=== PATIENT | female | born 1975 | race African-American/Black ===

== ENCOUNTER 2017-12-24 10:14 | Emergency (ER) | payer BC ==
[2017-12-24 10:34] LABS: Bilirubin Negative (Negative); Blood, Urine Trace (Negative); Clarity Cloudy (Clear); Glucose, Urine (Dipstick) Negative (Negative); Leukocyte Negative (Negative); Nitrite Negative (Negative); Protein, Urine (Dipstick) 100 mg/dL (Neg-Trace); Specific Gravity, Urine 1.029 (1.002-1.036); Urobilinogen 0.2 mg/dL (0.2-1.0)
[2017-12-24 10:35] LABS: Pregnancy Test - Urine (BHCG) Negative (Negative); Pregu Control Background? CLEAR/WHITE (CLR/WHITE); Pregu Control Bar Appear? YES (CONTROL BAR); Specific Gravity 1.029 (1.002-1.036)
[2017-12-24 10:39] LABS: Bacteria/HPF 1+ HPF (None Seen); WBC/HPF 0-3 HPF (0-3)
[2017-12-24 12:26] LABS: #Basophils 0.1 thou/uL (0.0-0.2); #Eosinphils 0.1 thou/uL (0.0-0.7); #Lymphocytes 1.9 thou/uL (1.20-3.40); #Monocytes 0.6 thou/uL (0.11-0.59); %Basophils 1.2 % (0.0-1.0); %Eosinophils 1.7 % (0.0-10.0); %Lymphocytes 22.2 % (21.0-51.0); %Monocytes 6.5 % (0.0-10.0); %Neutrophils 68.5 % (42.0-75.0); Hemoglobin 11.9 g/dL (12.0-16.0); Mean Corpuscular HGB CONC 30.9 g/dL (32.0-36.0); Mean Corpuscular Hemoglobin 25.5 pg (27.0-31.0); Mean Corpuscular Volume 82.5 fl (81.0-99.0); Mean Platelet Volume 7.7 fL (7.4-10.4); Platelet Count 374 thou/uL (130-400); RBC Distribution Width 15.8 % (11.5-14.5); Red Blood Cell (RBC) Count 4.67 mill/uL (4.20-5.40); White Blood Cell (WBC) Count 8.7 thou/uL (4.8-10.8)
[2017-12-24] MEDS ORDERED: HYDROcodone/Acetaminophen 10/325 mg Tablet ONE (12:31)
[2017-12-24 12:40] LABS: Anion Gap 16 mmol/L (10-20); BUN (Urea Nitrogen) 8 mg/dL (7.0-18.7); Calc. Creatinine Clearance 0 mL/min (70-130); Calcium 9.4 mg/dL (7.8-10.44); Carbon Dioxide 20 mmol/L (22-29); Chloride 108 mmol/L (98-107); Estimated GFR-MDRD Greater than 90; Glucose 93 mg/dL (70-105); Potassium 3.7 mmol/L (3.5-5.1); Sodium 140 mmol/L (136-145)
--- NOTE | 2017-12-24 15:37 | CT ---
NONCONTRAST ENHANCED CT IMAGES ABDOMEN AND PELVIS: HISTORY: Abdominal pain. FINDINGS: Noncontrast-enhanced CT images of the abdomen and pelvis obtained. Unfortunately, IV and oral contra st were not given. This does decrease the sensitivity for detection of pathology. The lung bases were unremarkable. No evidence of free intraperitoneal air is seen. The liver, spleen, and pancreas are unremarkable. The gallbladder has been surgically removed. Adre nal glands unremarkable. No evidence of renal calculi seen. A normal appendix is seen. No dilated loops of bowel seen. There does appear to be some possible thickening of the ascending and transverse colon. This may rep resent colitis or may represent colonic redundant folds. I cannot exclude the possibility of some as cending colonic inflammatory process. The uterus is bulky. IMPRESSION: 1. Enlarged uterus with possible uterine mass. 2. No evidence of renal calculi. 3. Possible thickening of the ascending colon concerning for colitis. Correlate with direct visuali zation. POS: [facility]
[2017-12-27 01:02] LABS: Chlamydia by PCR Not Detected (NotDetected); GC by PCR Not Detected (NotDetected)
== END 2017-12-24 12:48 | disposition home or self-care (01) ==
LOC: SCSER 10:14
DX: N85.2 Hypertrophy of uterus (principal); G43.909 Migraine, unspecified, not intractable, without status migrainosus; I10 Essential (primary) hypertension; F17.210 Nicotine dependence, cigarettes, uncomplicated; Z79.899 Other long term (current) drug therapy
CPT/HCPCS: 36415; 74176; 80048; 81003; 81015; 81025; 85025; 87480; 87491; 87510; 87591; 87660

== ENCOUNTER 2018-03-10 10:30 | Inpatient (IN) | payer BC, OTHER ==
[2018-03-10 11:15] VITALS: BMI 46.7
--- NOTE | 2018-03-13 01:49 | HP ---
DATE OF OPERATION: 03/13/2018 CHIEF COMPLAINT: Fibroids, menorrhagia and pelvic pain. HISTORY OF PRESENT ILLNESS: This is a 42-year-old, G5, P3, A2, with progressively worsening heavy me nstrual periods monthly lasting 6 days, passing large clots, unable to leave the house. Has a known fibroid and has enlarged over the past several years and pelvic pain, constant pressure. She has a 1 6-week size uterus including on ultrasound, uterus measuring 15.5 x 10 x 9.85 with a posterior fundal fibroid measuring 7.92 x 5.72 x 6.75. She had a negative endometrial biopsy with possible endometri al polyp. The ovaries were not visualized and the patient was counseled on options including attempt ed medical management with IUD or oral contraceptives or definitive management with hysterectomy. Th e patient desired definitive management. PAST MEDICAL HISTORY: Chronic hypertension , obesity, vitamin D deficiency, insomnia. PAST SURGICAL HISTORY: Cholecystectomy. OBSTETRIC HISTORY: x3, largest 9 pounds. GYNECOLOGIC HISTORY: No abnormal Paps, no STDs. SOCIAL HISTORY: Currently smokes 3 cigarettes per day. Negative for alcohol or drug use. FAMILY HISTORY: Hypertension, diabetes, breast cancer in her mother and her sister. REVIEW OF SYSTEMS: Negative except as noted in HPI. PHYSICAL EXAMINATION: VITAL SIGNS: Blood pressure 146/92, weight is 264, pulse is 86, respirations 16, BMI is 45.3. GENERAL: No acute distress. CARDIAC: Regular rate and rhythm. LUNGS: Clear to auscultation bilaterally. ABDOMEN: Soft, nontender, obese, nondistended. EXTREMITIES: No edema, cyanosis or clubbing. PELVIC: Deferred to the OR. ASSESSMENT AND PLAN: This is a 42-year-old P3 with a large fibroid uterus and menorrhagia, mild anem ia, pelvic pain, desiring definitive management. I have counseled the patient for minimally invasive laparoscopic approach, hysterectomy and bilateral salpingectomy and recommend retained ovaries as lo ng as normal appearing. The patient has not had BRCA testing and at this time declined to undergo th is. She understands the risk of conversion to open procedure, bleeding, transfusion, infection, deidra ge to surrounding structures including bowel, bladder, ureter, blood vessels, nerves. Plan for extra corporeal morcellation through the umbilicus in a contained fashion and this was discussed with the p atient as well including risk of underlying malignancy of less than 1000. The patient understands an d wished to proceed. All questions were answered. Postoperative care was discussed in detail. She will follow up with me in 2 weeks postoperative time.
[2018-03-13] MEDS ORDERED: Gabapentin 300 MG CAP ONE (10:45)
[2018-03-13] MEDS ORDERED: CeleCOXIB 100 MG CAP ONE (10:46)
[2018-03-13] MEDS ORDERED: Famotidine/PF 20 mg/2ml Vial ONE (10:46)
[2018-03-13] MEDS ORDERED: CEFAZOLIN/Water 2 GM/20 ML SYRINGE ONE (10:46)
[2018-03-13] MEDS ORDERED: Fentanyl 100 MCG/2 ML VIAL ONE ×3 (10:59→19:26)
[2018-03-13] MEDS ORDERED: HYDROmorphone 0.5 MG/0.5 ML SYRINGE ONE (11:00)
[2018-03-13] MEDS ORDERED: Ketorolac Tromethamine 30 MG/ML VIAL ONE (14:02)
[2018-03-13] MEDS ORDERED: PROPOFOL 200 MG/20 ML VIAL ONE (14:02)
[2018-03-13] MEDS ORDERED: Dexamethasone 20 MG/5 ML VIAL ONE (14:02)
[2018-03-13] MEDS ORDERED: Lidocaine 1% PF 5 ML VIAL ONE (14:02)
[2018-03-13] MEDS ORDERED: PHENYLEPHRINE-NS 100 MCG/ML 10 ML SYRINGE ONE (14:02)
[2018-03-13] MEDS ORDERED: Glycopyrrolate 0.2 MG/ML 5 ML SYRINGE ONE (14:02)
[2018-03-13] MEDS ORDERED: Bupivacaine HCl 0.5%/Epinephrine 1:200,000/PF 30 ml Vial ONE (14:04)
[2018-03-13] MEDS ORDERED: metroNIDAZOLE 500 MG/100 ML BAG ONE (15:07)
[2018-03-13] MEDS ORDERED: Morphine 4 MG/ML Carpuject SLOW IVP PRN (17:17)
[2018-03-13] MEDS ORDERED: Zolpidem Tartrate 5 MG TAB PO PRN (17:17)
[2018-03-13] MEDS ORDERED: Ondansetron HCl/PF 4 MG/2 ML Vial IVP PRN ×2 (17:17→17:33)
[2018-03-13] MEDS ORDERED: Simethicone Chewable 80 MG TAB PO PRN (17:17)
[2018-03-13] MEDS ORDERED: Promethazine HCl 25 MG/ML VIAL IM PRN ×2 (17:17→17:33)
[2018-03-13] MEDS ORDERED: traMADol HCl 50 MG TAB PO PRN ×2 (17:17)
[2018-03-13] MEDS ORDERED: Acetaminophen 325 MG TAB PO PRN (17:17)
[2018-03-13] MEDS ORDERED: Bisacodyl 10 MG SUPP PR PRN (17:17)
[2018-03-13] MEDS ORDERED: diphenhydrAMINE 25 MG CAP PO PRN (17:17)
[2018-03-13] MEDS ORDERED: Ropivacaine 0.2% 550 ML 550 ML NERVE BLCK SCH ×3 (17:30→18:30)
[2018-03-13] MEDS ORDERED: Promethazine HCl 25 MG/ML VIAL SLOW IVP PRN (17:33)
[2018-03-13] MEDS ORDERED: Ropivacaine HCl/PF 750 ML in Premix Bag 1 BAG NERVE BLCK SCH (18:30)
[2018-03-13] MEDS: Ketorolac Tromethamine 30 MG/ML VIAL IVP SCH (22:12)
[2018-03-13] MEDS: Docusate Calcium (SURFAK) 240 MG CAP PO SCH (22:15)
[2018-03-13] MEDS: Morphine 4 MG/ML VIAL SLOW IVP PRN (23:00)
--- NOTE | 2018-03-14 00:01 | OP ---
DATE OF OPERATION: 03/13/2018 PREOPERATIVE DIAGNOSES: 1. Uterine fibroids. 2. Menometrorrhagia. 3. Pelvic pain. POSTOPERATIVE DIAGNOSES: 1. Uterine fibroids. 2. Menometrorrhagia. 3. Pelvic pain. PROCEDURE PERFORMED: Robotic-assisted total laparoscopic hysterectomy, bilateral salpingectomy, and extracorporeal morcellation. ESTIMATED BLOOD LOSS: 100 mL. INTRAVENOUS FLUIDS: 1500 mL crystalloid. URINE OUTPUT: 160 mL of clear urine. ATTENDING SURGEON: Zamzam Blakely M.D. VESSEL MASTER: Neymar Benz M.D. ANESTHESIA: General endotracheal. COMPLICATIONS: None. DRAINS: Cardenas catheter. PATHOLOGY: Uterus, cervix, bilateral fallopian tubes. FINDINGS: Enlarged 16-week size uterus sounded to 16 cm, multiple subserosal fibroids, the uterine f ibroids appeared to be degenerating on morcellation. The ovaries and fallopian tubes were normal cecy aterally, few small endometriotic implants in the pelvis on the left pelvic sidewall and anteriorly o n the bladder that were cauterized. OPERATIVE TECHNIQUE: The patient was taken to the operating room where general anesthesia was obtain ed without difficulty. The patient was prepped and draped in a sterile fashion in the dorsal lithoto my position. Cardenas catheter was placed in the bladder. Speculum was placed in the vagina. Anterior lip of the cervix was grasped with a single tooth tenaculum. The uterus then sounded to 16 cm. The cervix was dilated and the JOHAN manipulator was assembled with a 12 cm tip and a 4 cm colpotomizer r ing. The manipulator was then inserted to the uterine fundus and the colpotomizer ring was advanced to fit snugly around the cervix. Instruments were removed out of the vagina. Legs were placed in lo w lithotomy. Attention was turned to the abdomen. A 0.5% Marcaine with epinephrine was infiltrated into the umbilicus. The skin was grasped with 2 Imer clamps and 3 cm incision was made in the umbi licus. The subcutaneous tissue was dissected with the Mayos and the fascia was entered into sharply with the Mayos and extended with the Mayos as well, dissecting the fascia, the subcu off the fascia a s well. The extra small Doug retractor was placed into the incision and tightened down. The 8 mm camera port and 11 mm customer assistant port were placed into the Doug. The applied medical bag was then p laced into the upper abdomen and the Doug mini Gelpoint was affixed to top of the Doug with the t rocars in place. Pneumoperitoneum was established. Visualization of the pelvis noted with the above findings. Steep Trendelenburg was obtained. The right and left lower 8 mm robotic trocars were reno lexi after infiltrating with 0.5% Marcaine with epinephrine under direct visualization. The robot was then docked. The right robotic arm contained monopolar scissors, left robotic arm contained a fenes trated bipolar. The right fallopian tube was grasped and elevated. A window was made in the mesosal pinx. The vessels were cauterized with the fenestrated and the fallopian tube was then clamped acros s medially and cauterized and transected and removed out of the abdomen. The utero-ovarian was caute rized multiple times and transected. The round ligament was then cauterized in the midportion and tr ansected as well. The anterior leaf of the broad ligament was opened up and taken down to the level of the bladder flap. The posterior leaf of the broad ligament was opened up down to the level of the uterosacral and the vessels were skeletonized very well, making sure to allow the ureter to drop abhi y. Attention was turned to the left side with the left fallopian tube was grasped and elevated. A w indow was made in the mesosalpinx with the scissors and the vessels in the mesosalpinx were cauterize d with the fenestrated, vascular pedicle was cauterized and transected. The fallopian tube was clamp ed across, cauterized and transected on the medial portion, this is removed out of the abdomen. The utero-ovarian was cauterized multiple times and transected taken down to the level of the round ligam ent that was cauterized in the mid portion and transected. The anterior leaf of the broad ligament w as opened up to the level of the contralateral side incision. The posterior leaf of the broad ligame nt was also dropped down and the retroperitoneum was dissected and the vessels were skeletonized on t o allow the ureter to drop away on that side. Anterior colpotomy was then performed around to the le mohit of the vascular pedicle. Posterior colpotomy was difficult as the uterus was unable to manipulat e anteverted. Therefore, the vessels were clamped and just above the level of the internal os and ca uterized multiple times bilaterally. The vessels were then transected with hemostasis noted. The po sterior colpotomy was performed from the side and the uterus was completely transected. The manipula tor was removed off of the uterus. The uterus was placed into the upper abdomen and irrigation of th e pelvis was performed. The scissors were traded out for the needle full service vending driver and the #2-0 barbed Strat afix suture was used to close the cuff in a running fashion, incorporating vaginal mucosa and posteri or peritoneum in each bite and this was ran back for several sutures. Copious irrigation of the pelv is was performed and hemostasis was noted to be excellent. The 5 cm ON-Q pump was then threaded thro ugh the mid abdomen and placed on the posterior cul-de-sac tucked underneath the ovaries, test dose w as performed and flowed freely. At that time, the bag was then delivered into the pelvis as well as the uterus. The uterus was balanced on top of the bag and the sutures holding the bag together were cut and removed out of the abdomen, the uterus was easily manipulated into the bag. The bag was then pulled out of the Doug Gelpoint and cinched at the abdominal wall. The robot was undocked and ins truments were removed out of the abdomen. The GelPOINT was then removed off of the Doug and the ba g was brought to the abdomen. The Doug was also removed and placed on the inside of the bag to all ow for additional retraction. The cervix was then grasped with Milagros clamp and the morcellation was performed in a contained fashion with a C-incision technique, this took approximately 20 minutes. On ce all of the specimen had been removed, the Doug was removed out of the abdomen as well as the bag and there were no defects in the bag during the morcellating process and all cellular material was c ontained. The additional ON-Q catheter was then threaded around the umbilical incision, initially ma maria r a stab incision with a needle and just to the left of the umbilicus. The ON-Q tunneler was then used to tunnel around the umbilicus and the catheter was then threaded through the tunneler and test dose was performed and flowed freely. This was then taken down to the abdomen. The fascia was then closed with an 0 PDS in a [id number]-cm-[id number] x4 with excellent reapproximation. The skin was closed wi th 4-0 Monocryl in a subcuticular fashion and Dermabond was applied. The vaginal cuff was checked wi th excellent closure noted with hemostasis. The patient tolerated procedure well. Sponge, lap, need le counts were correct x2. The patient was taken to recovery room in stable condition. The patient received Ancef 2 grams prior to the procedure.
[2018-03-14] MEDS: Morphine 4 MG/ML VIAL SLOW IVP PRN (04:24)
[2018-03-14 05:19] LABS: Hemoglobin 9.6 g/dL (12.0-16.0); Mean Corpuscular HGB CONC 31.9 g/dL (32.0-36.0); Mean Corpuscular Hemoglobin 26.4 pg (27.0-31.0); Mean Platelet Volume 8.1 fL (7.4-10.4); Platelet Count 320 thou/uL (130-400); RBC Distribution Width 16.9 % (11.5-14.5); Red Blood Cell (RBC) Count 3.65 mill/uL (4.20-5.40); White Blood Cell (WBC) Count 18.3 thou/uL (4.8-10.8)
[2018-03-14] MEDS: Ketorolac Tromethamine 30 MG/ML VIAL IVP SCH ×2 (06:17)
[2018-03-14] MEDS: Sodium Chloride 0.9% 1,000 ML IV SCH ×2 (06:30→07:57)
[2018-03-14] MEDS ORDERED: HYDROcodone/Acetaminophen 5/325 mg Tablet PO PRN ×2 (08:18)
[2018-03-14] MEDS ORDERED: HYDROcodone/Acetaminophen 5/325 mg Tablet PO SCH (08:30)
[2018-03-14] MEDS: Docusate Calcium (SURFAK) 240 MG CAP PO SCH (08:37)
[2018-03-14 08:38] VITALS: BP 157/85
[2018-03-14 08:46] VITALS: TEMP 98
[2018-03-14] MEDS ORDERED: Lisinopril 5 MG TAB PO SCH (09:00)
--- NOTE | 2018-03-15 11:24 | DIS ---
DATE OF ADMISSION: 03/13/2018 DATE OF DISCHARGE: 03/14/2018 ADMISSION DIAGNOSES: 1. Uterine fibroids. 2. Menometrorrhagia. 3. Pelvic pain. DISCHARGE DIAGNOSES: Status post robotic-assisted total laparoscopic hysterectomy, bilateral salping ectomy with extracorporeal morcellation. DISCHARGE CONDITION: Stable. ATTENDING PHYSICIAN: Zamzam Blakely M.D. CONSULTATIONS: None. PROCEDURES/OPERATIONS: As listed in discharge diagnoses. HISTORY AND PHYSICAL: Please see previously dictated H and P. HOSPITAL COURSE: A 42-year-old presented to day stay to undergo scheduled surgery as above. She had an uncomplicated procedure with an estimated blood loss of 100 mL. Postoperatively, she went to the floor. She was initially managed on IV Toradol for pain. She had on ON-Q double lumen pain pump in place as well. Her pain was slightly difficult to control initially. The pain pump was dialed up a nd morphine p.r.n. was given. On postoperative day #1, the patient was transitioned to p.o. [place] an d ibuprofen and pain control was improved. She was able to tolerate a regular diet, ambulate without difficulty, and void without difficulty prior to discharge. Her vital signs remained within normal limits and her final pathology is pending at the time of discharge. She had a benign exam on the day of discharge including incisions that were clean, dry, and intact. Her lungs were clear and heart w as regular rate and rhythm. She is sent home with prescriptions for ibuprofen and [place] 5/325 and sh carolyne is to follow up with me in 2 weeks' postoperative time and was given ER warnings to return for any severe pain, persistent nausea, vomiting, fever greater than 101, or heavy vaginal bleeding and she v oiced understanding.
[2018-03-18] MEDS ORDERED: Ibuprofen 800 MG TAB PO SCH (22:00)
== END 2018-03-14 10:38 | disposition home or self-care (01) | DRG 743 ==
LOC: SURG A 03-13 10:24 → 3SE 03-13 20:16
PROVIDERS: ADMIT Student in an Organized Health Care Education/Training Program; ATTEND Student in an Organized Health Care Education/Training Program
PROC: 0UT9FZZ Resection of Uterus, Via Natural or Artificial Opening With Percutaneous Endoscopic Assistance (ICD-10-PCS; principal; 2018-03-13)
PROC: 0UT7FZZ Resection of Bilateral Fallopian Tubes, Via Natural or Artificial Opening With Percutaneous Endoscopic Assistance (ICD-10-PCS; 2018-03-13)
DX: D25.1 Intramural leiomyoma of uterus (principal); N92.0 Excessive and frequent menstruation with regular cycle; I10 Essential (primary) hypertension; R10.2 Pelvic and perineal pain; E66.9 Obesity, unspecified; F17.210 Nicotine dependence, cigarettes, uncomplicated; Z90.49 Acquired absence of other specified parts of digestive tract
CPT/HCPCS: 36415; 85027; 88307; A4216; A4306; J0670; J1100; J1170; J1885; J2001; J2270; J2704; J2795; J3010; S0028

== ENCOUNTER 2018-03-10 10:41 | Outpatient (CLI) | payer BC, OTHER ==
[2018-03-10 11:09] VITALS: BMI 46.5
[2018-03-10 12:08] LABS: Hemoglobin 10.9 g/dL (12.0-16.0); Mean Corpuscular HGB CONC 31.4 g/dL (32.0-36.0); Mean Corpuscular Hemoglobin 25.9 pg (27.0-31.0); Mean Corpuscular Volume 82.5 fl (81.0-99.0); Mean Platelet Volume 7.2 fL (7.4-10.4); Platelet Count 382 thou/uL (130-400); RBC Distribution Width 16.7 % (11.5-14.5); Red Blood Cell (RBC) Count 4.22 mill/uL (4.20-5.40); White Blood Cell (WBC) Count 6.3 thou/uL (4.8-10.8)
[2018-03-10 12:45] LABS: ALT (SGPT) 8 U/L (8-55); AST (SGOT) 12 U/L (5-34); Albumin 3.9 g/dL (3.5-5.0); Alkaline Phosphatase 89 U/L (40-150); Anion Gap 13 mmol/L (10-20); BUN (Urea Nitrogen) 9 mg/dL (7.0-18.7); Bilirubin, Total 0.4 mg/dL (0.2-1.2); Calc. Creatinine Clearance 173 mL/min (70-130); Carbon Dioxide 22 mmol/L (22-29); Chloride 107 mmol/L (98-107); Estimated GFR-MDRD Greater than 90; Glucose 83 mg/dL (70-105); Protein, Total 6.9 g/dL (6.0-8.3); Sodium 138 mmol/L (136-145)
== END 2018-03-10 10:42 | disposition home or self-care (01) ==
LOC: LABBT 10:41
PROVIDERS: ATTEND Obstetrics & Gynecology
DX: Z01.818 Encounter for other preprocedural examination (principal); D25.9 Leiomyoma of uterus, unspecified; N92.0 Excessive and frequent menstruation with regular cycle; R10.2 Pelvic and perineal pain; I10 Essential (primary) hypertension
CPT/HCPCS: 80053; 85027; 86850; 86900; 86901; 93005; 93010

== ENCOUNTER 2018-08-15 13:21 | Emergency (ER) | payer BC ==
[2018-08-15] MEDS ORDERED: Famotidine 20 MG TAB ONE (13:35)
[2018-08-15] MEDS ORDERED: Dexamethasone 4 mg/ml Vial ONE (13:35)
== END 2018-08-15 13:45 | disposition home or self-care (01) ==
LOC: ERS 13:21
DX: T78.40XA Allergy, unspecified, initial encounter (principal); G43.909 Migraine, unspecified, not intractable, without status migrainosus; F17.210 Nicotine dependence, cigarettes, uncomplicated; Z79.899 Other long term (current) drug therapy
CPT/HCPCS: 99283; J1100

== ENCOUNTER 2018-09-07 08:47 | Outpatient (CLI) | payer BC ==
--- NOTE | 2018-09-07 09:12 | RAD ---
LEFT FOOT 3 VIEWS: HISTORY: Left foot pain. FINDINGS/IMPRESSION: No fracture, dislocation, or bony destruction is seen. A posterior calcaneal spur is present. POS: [facility]
== END 2018-09-07 08:48 | disposition home or self-care (01) ==
LOC: SCSRAD 08:47
PROVIDERS: ATTEND Psychiatry & Neurology Neurology
DX: M79.672 Pain in left foot (principal); M77.32 Calcaneal spur, left foot

== ENCOUNTER 2021-02-10 07:41 | Outpatient (CLI) | payer BC ==
[2021-02-10 21:48] LABS: SARS-CoV-2 PCR by NAA Not Detected (NotDetected)
== END 2021-02-10 07:42 | disposition home or self-care (01) ==
LOC: LABBT 07:41
PROVIDERS: ATTEND Internal Medicine Gastroenterology
DX: Z01.812 Encounter for preprocedural laboratory examination (principal); Z12.11 Encounter for screening for malignant neoplasm of colon; Z20.822 Contact with and (suspected) exposure to COVID-19
CPT/HCPCS: 87635; U0003; U0005

== ENCOUNTER 2021-02-13 05:53 | Day surgery (SDC) | payer BC ==
[2021-02-12 12:15] VITALS: BMI 50.5
[2021-02-13] MEDS ORDERED: PROPOFOL 200 MG/20 ML VIAL ONE (07:59)
== END 2021-02-13 09:05 | disposition home or self-care (01) ==
LOC: SDC 05:53
PROVIDERS: ATTEND Internal Medicine Gastroenterology
PROC: 0DBN8ZZ Excision of Sigmoid Colon, Via Natural or Artificial Opening Endoscopic (ICD-10-PCS; principal; 2021-02-13)
DX: Z12.11 Encounter for screening for malignant neoplasm of colon (principal); K51.40 Inflammatory polyps of colon without complications; K21.9 Gastro-esophageal reflux disease without esophagitis; I10 Essential (primary) hypertension; R73.03 Prediabetes; F17.200 Nicotine dependence, unspecified, uncomplicated; Z79.899 Other long term (current) drug therapy; Z88.0 Allergy status to penicillin; Z88.5 Allergy status to narcotic agent; Z88.8 Allergy status to other drugs, medicaments and biological substances
CPT/HCPCS: 88305; J2704

== ENCOUNTER → 2023-01-27 | Outpatient (CLI) | payer BC | LOC: SLEEPLAB 19:00 | PROVIDERS: ATTEND Family Medicine | DX: G47.33 Obstructive sleep apnea (adult) (pediatric) (principal); R53.83 Other fatigue; E66.9 Obesity, unspecified; G47.00 Insomnia, unspecified; R06.83 Snoring | CPT/HCPCS: 95810 ==